=== PATIENT | female | born 1975 | race Caucasian/White ===

== ENCOUNTER 2017-05-05 13:41 | Emergency (ER) | payer SELFPAY ==
[2017-05-05 13:52] VITALS: PULSE 68; TEMP 97.6; BMI 25.5
--- NOTE | 2017-05-05 13:58 | PDOC ---
History of Present Illness <Jairon Nunez - Last Filed: 05/05/17 18:16> - General History Source: Patient Exam Limitations: No Limitations - History of Present Illness Initial Comments: 05/05/17 14:47 The patient is a 42 year old female with a PMHx of panic attacks who presents to the ED after a panic attack at work. Patient reports that she usually has one or two panic attacks a month. Today she had 3 episodes with a few minutes in between.She reports feeling warm and SOB when she has an attack, and that after her attacks she feels very exhausted and weak in her legs. Her PCP prescribed her with Xanax for when the episodes occur. Her last panic attack was 2 weeks ago. She states that there is no specific cause that brings them on. <Alesia Coto - Last Filed: 05/05/17 18:38> - General Chief Complaint: Psychiatric Stated Complaint: ANXIETY Past History - Past Medical History Psychiatric Problems: Yes (anxiety) - Surgical History Abdominal Surgery: Yes (bilateral hernia) Appendectomy: Yes - Psycho/Social/Smoking Cessation Hx Anxiety: Yes Suicidal Ideation: No Smoking History: Current some day smoker Have you smoked in the past 12 months: Yes Number of Cigarettes Smoked Daily: 1 Information on smoking cessation initiated: No Hx Alcohol Use: No Drug/Substance Use Hx: No Substance Use Type: None <Jairon Nunez - Last Filed: 05/05/17 18:16> <Alesia Coto - Last Filed: 05/05/17 18:38> - Past Medical History Allergies/Adverse Reactions: Allergies Allergy/AdvReac Type Severity Reaction Status Date / Time No Known Allergies Allergy Unverified 05/05/17 13:47 Home Medications: Ambulatory Orders Alprazolam [Xanax] 0.25 mg PO BID PRN 05/05/17 Review of Systems - Review of Systems Able to Perform ROS?: Yes Comments:: 05/05/17 14:48 GENERAL/CONSTITUTIONAL: (+) panic attack, weakness, exhaustion. No fever or chills. HEAD, EYES, EARS, NOSE AND THROAT: No change in vision. No ear pain or discharge. No sore throat. CARDIOVASCULAR: (+) shortness of breath.No chest pain RESPIRATORY: No cough, wheezing, or hemoptysis. GASTROINTESTINAL: No nausea, vomiting, diarrhea or constipation. GENITOURINARY: No dysuria, frequency, or change in urination. MUSCULOSKELETAL: No joint or muscle swelling or pain. No neck or back pain. SKIN: No rash NEUROLOGIC: No headache, vertigo, loss of consciousness, or change in strength/ sensation. ENDOCRINE: No increased thirst. No abnormal weight change. HEMATOLOGIC/LYMPHATIC: No anemia, easy bleeding, or history of blood clots. ALLERGIC/IMMUNOLOGIC: No hives or skin allergy. <Alesia Coto - Last Filed: 05/05/17 18:38> *Physical Exam - Vital Signs Last Vital Signs Temp Pulse Resp BP Pulse Ox 97.6 F 68 20 117/82 99 05/05/17 13:48 05/05/17 13:48 05/05/17 13:48 05/05/17 13:48 05/05/17 13:48 <Jairon Nunez - Last Filed: 05/05/17 18:16> - Vital Signs Last Vital Signs Temp Pulse Resp BP Pulse Ox 97.6 F 68 20 117/82 99 05/05/17 13:48 05/05/17 13:48 05/05/17 13:48 05/05/17 13:48 05/05/17 13:48 - Physical Exam Comments: 05/05/17 14:48 GENERAL: Awake, alert, and fully oriented, in no acute distress HEAD: No signs of trauma EYES: PERRLA, EOMI, sclera anicteric, conjunctiva clear ENT: Auricles normal inspection, hearing grossly normal, nares patent, oropharynx clear without exudates. Moist mucosa NECK: Normal ROM, supple, no lymphadenopathy, JVD, or masses LUNGS: Breath sounds equal, clear to auscultation bilaterally. No wheezes, and no crackles HEART: Regular rate and rhythm, normal S1 and S2, no murmurs, rubs or gallops ABDOMEN: Soft, nontender, normoactive bowel sounds. No guarding, no rebound. No masses EXTREMITIES: Normal range of motion, no edema. No clubbing or cyanosis. No cords, erythema, or tenderness NEUROLOGICAL: Cranial nerves II through XII grossly intact. Normal speech, normal gait <NnamdiAlesia A - Last Filed: 05/05/17 18:38> Heart Score/ECG Review #1 05/05/17 14:50 Normal sinus rhythm at 63 bpm. <Alesia Coto - Last Filed: 05/05/17 18:38> ED Treatment Course - RADIOLOGY Radiograph Interpretation: 05/05/17 18:38 Chest X-Ray Reported by Dr. Jair Aguilar Impression: Normal chest <Alesia Coto - Last Filed: 05/05/17 18:38> *DC/Admit/Observation/Transfer - Discharge Dispostion Admit: No - Attestations Physician Attestion: 05/05/17 13:59 <Jairon Nunez - Last Filed: 05/05/17 18:16> - Attestations Scribe Attestion: 05/05/17 14:48 Documentation prepared by Alesia Coto, acting as certified medical asst for Jarion Nunez DO. <Alesia Coto - Last Filed: 05/05/17 18:38> Diagnosis at time of Disposition: Panic attack, Anxiety - Referrals Referrals: Timbo Morales MD [Primary Care Provider] - Donna Phan MD [Staff Physician] - - Patient Instructions Printed Discharge Instructions: DI for Panic Disorder Additional Instructions: Monalisa Go Ahead and take your Xanax if need be and follow up with the Psychiatrist. Return to us if problems. Best- Dr. Jairon Nunez
[2017-05-05 18:53] VITALS: BP 101/63
--- NOTE | 2017-05-06 20:49 | EKG ---
Test Reason : Blood Pressure : / mmHG Vent. Rate : 063 BPM Atrial Rate : 063 BPM P-R Int : 148 ms QRS Dur : 074 ms QT Int : 428 ms P-R-T Axes : 063 011 014 degrees QTc Int : 437 ms NORMAL SINUS RHYTHM NORMAL ECG NO PREVIOUS ECGS AVAILABLE REPEAT EKG IF CLINICALLY INDICATED Confirmed by JOAQUÍN HUMPHREY MD ([id number]) on 05/06/2017 8:49:43 PM Referred By: Confirmed By:JOAQUÍN HUMPHREY MD
== END 2017-05-05 18:53 | disposition home or self-care (01) ==
LOC: JER 13:41
DX: F41.0 Panic disorder [episodic paroxysmal anxiety] (principal)
CPT/HCPCS: 36415; 71020-TC; 84702; 84703; 93005; 93010; 99282-25